=== PATIENT | male | born 1955 | race Caucasian/White ===

== ENCOUNTER 2017-04-26 18:13 | Inpatient (IN) | payer OTHER ==
[~2017-04-26] VITALS: Ht 185.4 cm; Wt 88.0 kg
[~2017-04-26 18:13] MED LIST: HYDR50TA94 PO; PRED20 PO; Z.0.NO CURRENT MEDS
[2017-04-26 18:18] VITALS: O2SAT 95
[2017-04-26] MEDS ORDERED: SODIUM CHLORIDE 0.9% FLUSH 10 ML FLUSH IVF PRN (18:30)
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
[2017-04-26 18:40] VITALS: BP 134/86; PULSE 92; RESP 20; TEMP 98.6; O2SAT 96; O2SAT 97; O2SAT 99
[2017-04-26 18:50] LABS: AUTOMATED NEUTROPHIL # 5.7 TH/MM3 (1.8-7.7); BASOPHIL # 0.1 TH/MM3 (0-0.2); BASOPHIL % 0.8 % (0.0-2.0); EOSINOPHIL # 0.1 TH/MM3 (0-0.4); EOSINOPHIL % 1.5 % (0.0-4.0); HEMATOCRIT 44.8 % (39.0-51.0); HEMO FLAGS DIFF FINAL; LYMPH % 20.3 % (9.0-44.0); LYMPHOCYTE # 1.7 TH/MM3 (1.0-4.8); MEAN CELL VOLUME 100.9 FL (80.0-100.0); MEAN CORPUSCULAR HEMOGLOBIN 35.8 PG (27.0-34.0); MEAN CORPUSCULAR HGB CONC 35.5 % (32.0-36.0); MONO % 10.3 % (0.0-8.0); NEUT % 67.1 % (16.0-70.0); PLATELET COUNT 167 TH/MM3 (150-450); RED BLOOD COUNT 4.44 MIL/MM3 (4.50-5.90); RED CELL DISTRIBUTION WIDTH 12.8 % (11.6-17.2); WHITE BLOOD COUNT 8.4 TH/MM3 (4.0-11.0)
[2017-04-26 18:57] LABS: I-STAT POTASSIUM 3.9 MMOL/L (3.5-4.9)
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
[2017-04-26 19:06] LABS: APTT (PATIENT) 30.3 SEC (24.3-30.1); INTERNATIONAL NORMALIZED RATIO 0.9 RATIO; PROTHROMBIN TIME - PATIENT 10.3 SEC (9.8-11.6)
[2017-04-26] MEDS ORDERED: IOHEXOL 350 MG/ML 10 ML VIAL (for RAD DIAG) IVCONTRAST ONE (19:27)
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
[2017-04-26] MEDS ORDERED: LIDOCAINE 2%/EPINEPHrine 1:100,000 20ML MDV NERV BLOCK ONE (19:45)
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
[2017-04-26] MEDS ORDERED: MORPHINE SULFATE 8 MG/ML INJ IV PUSH ONE (20:00)
[2017-04-26 20:11] VITALS: BP 157/78; PULSE 89; RESP 28; O2SAT 96
[2017-04-26] MEDS ORDERED: MISCELLANEOUS NURSING INFORMATION XX SCH (20:45)
[2017-04-26] MEDS ORDERED: MORPHINE SULFATE 4 MG/ML INJ IV PUSH PRN (20:45)
[2017-04-26] MEDS ORDERED: LIDOCAINE HCL 5% PATCH T-DERMAL ONE (20:45)
[2017-04-26] MEDS ORDERED: MORPHINE SULFATE 8 MG/ML INJ IV PUSH PRN (20:45)
[2017-04-26] MEDS ORDERED: CHLORHEXIDINE GLUCONATE 2 % 1 PACK (2 CLOTHS) TOP PRN (20:45)
[2017-04-26] MEDS ORDERED: ONDANSETRON HCL 4 MG/2 ML VIAL IV PUSH PRN (20:45)
--- NOTE | 2017-04-26 20:46 | PD ---
Physical Exam Narrative I was asked by Dr. Josue to repair patient's scalp laceration. Please see his documentation for full H&P. Data Data Last Documented VS Vital Signs Date Time Temp Pulse Resp B/P (MAP) Pulse Ox O2 Delivery O2 Flow Rate FiO2 04/26/17 18:40 98.6 92 20 134/86 (102) 96 Nasal Cannula 2.00 Orders Orders I-Stat Profile (04/26/17 18:19) I-Stat Creatinine (04/26/17 18:19) Complete Blood Count With Diff (04/26/17 18:19) Prothrombin Time / Inr (Pt) (04/26/17 18:19) Act Partial Throm Time (Ptt) (04/26/17 18:19) Type And Screen (04/26/17 18:19) Ct Brain W/O Iv Contrast(Rout) (04/26/17 18:19) Ct Cerv Spine W/O Contrast (04/26/17 18:19) Ct Abd/Pel W Iv Contrast(Rout) (04/26/17 18:19) Ct Thorax/ Chest W Iv Contrast (04/26/17 18:19) Iv Access Insert/Monitor (04/26/17 18:19) Ecg Monitoring (04/26/17 18:19) Oximetry (04/26/17 18:19) Oxygen Administration (04/26/17 18:19) Sodium Chloride 0.9% Flush (Ns Flush) (04/26/17 18:30) Chest, Single Ap (04/26/17 ) Iohexol 350 Inj (Omnipaque 350 Inj) (04/26/17 19:27) Lidocai-Epi 2%-1:100,000 Inj (Xylocaine- (04/26/17 19:45) Morphine Inj (Morphine Inj) (04/26/17 20:00) Troponin I (04/26/17 20:03) Electrocardiogram (04/26/17 ) Admit Order (Ed Use Only) (04/26/17 ) Labs Laboratory Tests Test 04/26/17 18:26 White Blood Count 8.4 TH/MM3 Red Blood Count 4.44 MIL/MM3 Hemoglobin 15.9 GM/DL Bedside Hemoglobin 15.6 G/DL Hematocrit 44.8 % Bedside Hematocrit 46.0 % Mean Corpuscular Volume 100.9 FL Mean Corpuscular Hemoglobin 35.8 PG Mean Corpuscular Hemoglobin Concent 35.5 % Red Cell Distribution Width 12.8 % Platelet Count 167 TH/MM3 Mean Platelet Volume 8.4 FL Neutrophils (%) (Auto) 67.1 % Lymphocytes (%) (Auto) 20.3 % Monocytes (%) (Auto) 10.3 % Eosinophils (%) (Auto) 1.5 % Basophils (%) (Auto) 0.8 % Neutrophils # (Auto) 5.7 TH/MM3 Lymphocytes # (Auto) 1.7 TH/MM3 Monocytes # (Auto) 0.9 TH/MM3 Eosinophils # (Auto) 0.1 TH/MM3 Basophils # (Auto) 0.1 TH/MM3 CBC Comment DIFF FINAL Differential Comment Prothrombin Time 10.3 SEC Prothromb Time International Ratio 0.9 RATIO Activated Partial Thromboplast Time 30.3 SEC Bedside Sodium 140 MMOL/L Bedside Potassium 3.9 MMOL/L Bedside Chloride 103 MMOL/L Bedside Blood Urea Nitrogen 16 MG/DL Bedside Creatinine 0.8 MG/DL Bedside Glucose 106 MG/DL MDM Supervised Visit with JEFF: No Procedures Procedure Narrative LACERATION REPAIR LOCATION: Left parietal lobe LENGTH: C shaped skin flap approximately 2 cm in total length NUMBER OF STITCHES/LEVI: 3 Simple interrupted REPAIR: Verbal consent was obtained. The area of the laceration was cleaned and prepped. The laceration was infiltrated with lidocaine with epi. The wound was copiously irrigated and explored without evidence of foreign body or bony involvement. The wound was closed using 5-0 Vicryl. This was a single layer repair. The patient was advised to keep the affected area as clean and dry as possible using soap and water. There were no complications. Patient tolerated the procedure well. Diagnosis Primary Impression: Blunt chest trauma Additional Impressions: Pleuritic pain Scalp laceration Dg Vasques Apr 26, 2017 20:46
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
[2017-04-26] MEDS: DOCUSATE SODIUM 100 MG CAP PO SCH (21:00)
[2017-04-26] MEDS: LACTATED RINGER'S 1000 ML INJ 1,000 ML IV SCH (21:24)
[2017-04-26] MEDS: KETOROLAC TROMETHAMINE 30 MG/ML (IVP) VIAL IVP SCH (21:25)
[2017-04-26 21:41] VITALS: BP 137/78; PULSE 80; RESP 18; O2SAT 98
[2017-04-26] MEDS: METHOCARBAMOL 500 MG TAB PO SCH (22:01)
[2017-04-26] MEDS: MORPHINE SULFATE 4 MG/ML INJ IV PUSH PRN (22:01)
[2017-04-26 22:41] VITALS: BP 119/79; PULSE 92; RESP 18; TEMP 96.2; O2SAT 94
--- NOTE | 2017-04-26 22:58 | EKG ---
Date Performed: 04/26/2017 Time Performed: 20:31:05 PTAGE: 62 years EKG: Sinus rhythm NORMAL ECG NO PREVIOUS TRACING DOCTOR: Lei Sr Interpretating Date/Time 04/26/2017 22:56:50
[2017-04-27] VITALS (7 sets, daily range): BP systolic 97–121; BP diastolic 60–77; PULSE 66–79; RESP 18; TEMP 96.7–98; O2SAT 92–95
[2017-04-27] MEDS: KETOROLAC TROMETHAMINE 30 MG/ML (IVP) VIAL IVP SCH ×4 (03:02→22:21)
[2017-04-27] MEDS ORDERED: CHLORHEXIDINE GLUCONATE 2 % 1 PACK (2 CLOTHS) TOP SCH (04:00)
[2017-04-27] MEDS: METHOCARBAMOL 500 MG TAB PO SCH ×3 (06:02→22:21)
[2017-04-27] MEDS: MORPHINE SULFATE 4 MG/ML INJ IV PUSH PRN (06:03)
[2017-04-27] MEDS: LACTATED RINGER'S 1000 ML INJ 1,000 ML IV SCH (06:03)
[2017-04-27 06:25] LABS: HEMO FLAGS DIFF FINAL; MEAN CELL VOLUME 101.2 FL (80.0-100.0); MEAN CORPUSCULAR HEMOGLOBIN 35.1 PG (27.0-34.0); MEAN CORPUSCULAR HGB CONC 34.7 % (32.0-36.0); PLATELET COUNT 141 TH/MM3 (150-450); RED BLOOD COUNT 4.05 MIL/MM3 (4.50-5.90)
[2017-04-27 06:26] LABS: AUTOMATED NEUTROPHIL # 5.1 TH/MM3 (1.8-7.7); BASOPHIL # 0.1 TH/MM3 (0-0.2); BASOPHIL % 0.8 % (0.0-2.0); EOSINOPHIL # 0.3 TH/MM3 (0-0.4); EOSINOPHIL % 3.4 % (0.0-4.0); LYMPH % 21.7 % (9.0-44.0); LYMPHOCYTE # 1.7 TH/MM3 (1.0-4.8); MONO % 10.4 % (0.0-8.0); NEUT % 63.7 % (16.0-70.0)
[2017-04-27 06:45] LABS: BICARBONATE 26.4 MEQ/L (21.0-32.0); POTASSIUM 3.4 MEQ/L (3.5-5.1)
[2017-04-27] MEDS ORDERED: oxyCODONE/ACETAMINOPHEN 5 MG/325 MG TAB PO PRN (06:45)
[2017-04-27] MEDS ORDERED: oxyCODONE/ACETAMINOPHEN 7.5 MG/325 MG TAB PO PRN (06:45)
[2017-04-27] MEDS ORDERED: POTASSIUM CHLORIDE 20 MEQ CONTROLLED RELEASE TAB PO ONE (07:00)
--- NOTE | 2017-04-27 07:48 | RADRPT ---
EXAM DATE/TIME: 04/27/2017 07:52 [place] COMPARISON: CHEST SINGLE AP, April 26, 2017, 18:15. INDICATIONS : Sternal pain. MEDICAL HISTORY : None. SURGICAL HISTORY : None. ENCOUNTER: Initial ACUITY: 2 days PAIN SCORE: 6/10 LOCATION: Chest, midline. FINDINGS: A single view of the chest demonstrates the lungs to be symmetrically aerated without evidence of mas s, infiltrate or effusion. The cardiomediastinal contours are unremarkable. Osseous structures are intact. Old bilateral rib fractures are stable. CONCLUSION: No acute cardiopulmonary disease. Madhu Armijo MD on April 27, 2017 at 7:46 Board Certified Radiologist. This report was verified electronically.
[2017-04-27] MEDS: LACTULOSE SYRUP 20 GM/30 ML CUP PO SCH ×2 (08:52→08:58)
[2017-04-27] MEDS: DOCUSATE SODIUM 100 MG CAP PO SCH ×2 (08:56→21:00)
[2017-04-27] MEDS: FAMOTIDINE 20 MG TAB PO SCH ×2 (08:58→22:21)
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
[2017-04-27] MEDS: ENOXAPARIN SODIUM 30 MG/0.3 ML SYRINGE SQ SCH (15:00)
[2017-04-27] MEDS ORDERED: MAGNESIUM HYDROXIDE SUSP 30 ML CUP PO SCH (21:00)
[2017-04-28] MEDS: KETOROLAC TROMETHAMINE 30 MG/ML (IVP) VIAL IVP SCH ×2 (02:44→08:33)
[2017-04-28] MEDS: ENOXAPARIN SODIUM 30 MG/0.3 ML SYRINGE SQ SCH ×2 (02:46→03:00)
[2017-04-28 03:42] VITALS: BP 120/75; PULSE 64; RESP 18; TEMP 98.7; O2SAT 93
[2017-04-28] MEDS: METHOCARBAMOL 500 MG TAB PO SCH (05:13)
[2017-04-28] MEDS ORDERED: DOCU1CAP39 PO (07:34)
[2017-04-28] MEDS ORDERED: MAGN400S PO (07:34)
[2017-04-28 08:00] VITALS: BP 119/70; PULSE 68; RESP 16; TEMP 96.6; O2SAT 93
[2017-04-28] MEDS: FAMOTIDINE 20 MG TAB PO SCH (08:33)
[2017-04-28] MEDS: DOCUSATE SODIUM 100 MG CAP PO SCH (08:33)
[2017-04-28] MEDS: LACTULOSE SYRUP 20 GM/30 ML CUP PO SCH (08:33)
[2017-04-28 09:35] VITALS: RESP 16
[2017-04-28] MEDS ORDERED: OXYC1TAB63 PO (11:49)
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
== END 2017-04-28 12:23 | disposition home or self-care (01) | DRG 185 ==
LOC: NEPE 18:13 → NEDA 20:06 → N06B 21:41
PROVIDERS: ADMIT Surgery Trauma Surgery; ATTEND Surgery Trauma Surgery
PROC: 0HQ0XZZ Repair Scalp Skin, External Approach (ICD-10-PCS; principal; 2017-04-26)
DX: S22.22XA Fracture of body of sternum, initial encounter for closed fracture (principal); S01.01XA Laceration without foreign body of scalp, initial encounter; V47.5XXA Car driver injured in collision with fixed or stationary object in traffic accident, initial encounter; V89.2XXA Person injured in unspecified motor-vehicle accident, traffic, initial encounter; Y92.410 Unspecified street and highway as the place of occurrence of the external cause; Z72.0 Tobacco use
CPT/HCPCS: 12001; 70450; 71010; 71260; 72125; 74177; 80048; 82435; 82565; 82947; 84132; 84295; 84484; 84520; 85025; 85610; 85730; 86850; 86900; 86901; 93005; J1650; J1885; J2270; J7120; Q9967